=== PATIENT | female | born 1940 | race Caucasian/White ===

== ENCOUNTER 2016-11-10 12:24 | Inpatient (IN) | payer MEDICARE, OTHER ==
[~2016-11-10] VITALS: Ht 160 cm; Wt 81.6 kg
[2016-11-10] MEDS ORDERED: GLUCOPHAGE1000 MG PO (14:12)
[2016-11-10] MEDS ORDERED: JANUMET XR 50-1 EACH PO (14:13)
[2016-11-10 14:23] VITALS: BP 105/56; BMI 35.5
[2016-11-10 14:29] LABS: BASOPHILS 0.7 % (0.0-2.0); EOSINOPHILS 2.4 % (0-7); HEMATOCRIT 20.8 % (36.0-48.0); IMMATURE GRANULOCYTES 0.2 % (0-5); LYMPHOCYTES 33.2 % (15-50); MCHC 26.9 g/dL (31.0-37.0); MCV 66.7 fL (80.0-100.0); MEAN PLATELET VOLUME 9.2 fL (7.4-10.4); MONOCYTES 8.7 % (2-11); NEUTROPHILS 54.8 % (40-80); PLATELET COUNT 322 10x3/uL (130-400); RBC 3.12 10x6/uL (4.00-5.40); RDW 17.6 % (11.5-14.5); WBC 5.4 10x3/uL (4.8-10.8)
[2016-11-10 14:30] LABS: ANION GAP 13.8 mmol/L (8-16); CALCIUM 9.7 mg/dL (8.5-10.1); CARBON DIOXIDE 27.4 mmol/L (21.0-32.0); CREATININE - SERUM 0.9 mg/dL (0.6-1.3); POTASSIUM - SERUM 4.2 mmol/L (3.5-5.1)
[2016-11-10 14:37] LABS: HEMOGLOBIN 5.6 g/dL (12-16); MCH 17.9 pg (26.0-34.0)
[2016-11-10] MEDS ORDERED: CELEBREX200 MG PO (14:43)
[2016-11-10] MEDS ORDERED: NITROQUICK0.4 MG SL (14:44)
[2016-11-10] MEDS ORDERED: LISINOPRIL10 MG PO (14:44)
[2016-11-10] MEDS ORDERED: SPIRIVA18 MCG INH (14:45)
[2016-11-10] MEDS ORDERED: PROAIR HFA8.5 GM INH (14:45)
[2016-11-10] MEDS ORDERED: ASTEPRO (14:46)
[2016-11-10] MEDS ORDERED: ADVAIR 250/501 DISK INH (14:46)
[2016-11-10] MEDS ORDERED: PLAVIX75 MG PO (14:47)
[2016-11-10] MEDS ORDERED: FLUTICASONE PRO16 GM NASAL (14:47)
[2016-11-10] MEDS ORDERED: SINGULAIR10 MG PO (14:48)
--- NOTE | 2016-11-10 16:37 | NUR ---
1515 BO FROM CAMP COORDINATOR STARTED IV LACEY KENT 2 ATTEMPS NOT SUCCESSFUL. STARTED 20 GAUGE IN RT ARM GOOD BLOOD RETURN IV SALINE LOCKED.REPORTED LOW H AND H TO DR. SMILEY AND CATH CANCELLED.HE CALLED [facility] CODER FOR DR. GARDINER TO WRITE ORDERS.
--- NOTE | 2016-11-10 16:40 | NUR ---
1615 ORDERS GIVEN FOR PATIENT TO GET BLOOD AND ADMIT FOR OBSERVATION. INSTRUCTED TO NOT GET UP WITHOUT HELP.C/L IN REACH.
--- NOTE | 2016-11-10 17:31 | NUR ---
1715 CALLED NURSE PRACTICIONER NO ORDERS. TOLERATING HER SUPPER TRAY. REPORT TO JONATHAN COATS R.N. TRANSFERRED TO ROOM VIA W/C WITH BAG.
--- NOTE | 2016-11-10 18:02 | NUR ---
TRANSFER FROM OP BY W/C. OREINTED TO ROOM. CALL LIGHT IN REACH. WILL CONT. PLAN OF CARE.
[2016-11-10 18:11] VITALS: BP 130/60; BMI 35.5
[2016-11-10 19:19] LABS: ANION GAP 15.1 mmol/L (8-16); BILIRUBIN - TOTAL 0.35 mg/dL (0.2-1.3); CALCIUM 9.7 mg/dL (8.5-10.1); CARBON DIOXIDE 27.3 mmol/L (21.0-32.0); CREATININE - SERUM 0.9 mg/dL (0.6-1.3); POTASSIUM - SERUM 4.4 mmol/L (3.5-5.1); PROTEIN - SERUM 7.5 g/dL (6.4-8.2)
[2016-11-10 19:39] LABS: % SATURATION 3 % (15-55); IRON 13 ug/dl (35-150); TOTAL IRON BIND CAPACITY 422 ug/dl (260-445); UNSAT IRON BIND CAPACITY 409 ug/dl (150-375)
[2016-11-10 20:00] VITALS: BP 126/53
[2016-11-10 20:55] LABS: APPEARANCE CLEAR (CLEAR); BILIRUBIN NEGATIVE (NEGATIVE); COLOR YELLOW (YELLOW); GLUCOSE NEGATIVE (NEGATIVE); KETONE NEGATIVE (NEGATIVE); LEUKOCYTE ESTERASE NEGATIVE (NEGATIVE); NITRITE NEGATIVE (NEGATIVE); PROTEIN NEGATIVE (NEGATIVE); SPECIFIC GRAVITY 1.015 (1.005-1.020); UROBILINOGEN NORMAL (NORMAL)
--- NOTE | 2016-11-10 22:53 | NUR ---
1ST UNIT OF PRBCS INITIATED. VSS, CALL LIGHT IN REACH. WILL CONTINUE TO MONITOR.
[2016-11-11] VITALS: BP 134/65
--- NOTE | 2016-11-11 01:49 | NUR ---
1ST UNIT OF PRBCS COMPLETED, TOLERATED WELL. VSS THROUGHOUT TRANSFUSION. WILL CONTINUE TO MONITOR.
--- NOTE | 2016-11-11 03:55 | NUR ---
AREA RELIEF PILOT AT BEDSIDE TO OBTAIN VITALS, CALL LIGHT IN REACH. WILL CONTINUE WITH PLAN OF CARE.
[2016-11-11 04:00] VITALS: BP 130/63
--- NOTE | 2016-11-11 04:42 | NUR ---
2ND UNIT OF PRBCS COMPLETE, VSS THROUGHOUT TRANSFUSION. CALL LIGHT IN REACH. WILL CONTINUE TO MONITOR.
[2016-11-11 06:30] LABS: ALBUMIN 3.5 g/dL (3.4-5.0); BILIRUBIN - TOTAL 0.67 mg/dL (0.2-1.3); CARBON DIOXIDE 27.1 mmol/L (21.0-32.0); CREATININE - SERUM 0.8 mg/dL (0.6-1.3); POTASSIUM - SERUM 4.1 mmol/L (3.5-5.1); PROTEIN - SERUM 7.2 g/dL (6.4-8.2)
[2016-11-11 08:57] LABS: BASOPHILS 0.9 % (0.0-2.0); EOSINOPHILS 2.7 % (0-7); IMMATURE GRANULOCYTES 0.2 % (0-5); LYMPHOCYTES 37.3 % (15-50); MCH 20.8 pg (26.0-34.0); MCHC 28.6 g/dL (31.0-37.0); MEAN PLATELET VOLUME 9.5 fL (7.4-10.4); MONOCYTES 9.5 % (2-11); NEUTROPHILS 49.4 % (40-80); PLATELET COUNT 315 10x3/uL (130-400); RDW 22.1 % (11.5-14.5); WBC 5.5 10x3/uL (4.8-10.8)
[2016-11-11 09:01] LABS: HEMATOCRIT 27.6 % (36.0-48.0); HEMOGLOBIN 7.9 g/dL (12-16); MCV 72.6 fL (80.0-100.0)
[2016-11-11 09:40] LABS: PATH REVIEW PERIPHERAL SMEAR REVIEWED
[2016-11-11 14:54] LABS: HEMATOCRIT 30.3 % (36.0-48.0); HEMOGLOBIN 9.1 g/dL (12-16)
--- NOTE | 2016-11-11 16:01 | NUR ---
RECEIVED PT BACK TO UNIT VIA BED IN STABLE CONDITION VSS
--- NOTE | 2016-11-11 16:45 | NUR ---
SCD'S ON BILATERAL LE
[2016-11-11 20:17] VITALS: BP 172/87
[2016-11-12 04:00] VITALS: BP 168/80
--- NOTE | 2016-11-12 05:30 | NUR ---
CALL LIGHT IN REACH. WILL CONTINUE WITH PLAN OF CARE.
[2016-11-12 05:33] LABS: BASOPHILS 0.2 % (0.0-2.0); EOSINOPHILS 0.9 % (0-7); HEMATOCRIT 32.7 % (36.0-48.0); HEMOGLOBIN 10.1 g/dL (12-16); IMMATURE GRANULOCYTES 0.3 % (0-5); LYMPHOCYTES 21.5 % (15-50); MCH 23.1 pg (26.0-34.0); MCHC 30.9 g/dL (31.0-37.0); MCV 74.8 fL (80.0-100.0); MEAN PLATELET VOLUME 9.6 fL (7.4-10.4); MONOCYTES 6.9 % (2-11); NEUTROPHILS 70.2 % (40-80); PLATELET COUNT 297 10x3/uL (130-400); RBC 4.37 10x6/uL (4.00-5.40); RDW 22.3 % (11.5-14.5); WBC 9.1 10x3/uL (4.8-10.8)
[2016-11-12 05:56] LABS: APTT 30.9 SECONDS (22.8-39.4); INR 1.13 (0.85-1.17); PROTIME 14.4 SECONDS (11.6-15.0)
[2016-11-12 06:19] LABS: CALC OSMOLALITY 279 mosm/kg (275-300); CALCIUM 8.4 mg/dL (8.5-10.1); CHLORIDE - SERUM 104 mmol/L (98-107); CREATININE - SERUM 0.7 mg/dL (0.6-1.3); GLUCOSE 149 mg/dL (74-106); POTASSIUM - SERUM 4.1 mmol/L (3.5-5.1); SODIUM 140 mmol/L (136-145); THYROID STIMULATING HORMONE 0.85 uIU/mL (0.36-3.74); eGFR NON AFRICAN AMERICAN 86 mL/min (90-120)
[2016-11-12 06:24] LABS: UREA NITROGEN 8 mg/dL (7-18)
--- NOTE | 2016-11-12 07:30 | NUR ---
RECEIVED PT IN BED EYES CLOSED RESP UNLABORED NAD NOTED
[2016-11-12 07:38] VITALS: Ht 160 cm; Wt 81.6 kg
[2016-11-12 08:00] VITALS: BP 119/50
[2016-11-12 08:18] LABS: FOLATE (FOLIC ACID) - SERUM >20.0 ng/mL (>3.0)
[2016-11-12] MEDS ORDERED: JANUVIA100 MG PO (10:27)
[2016-11-12] MEDS ORDERED: ASTEPRO30 M1 NASAL (10:42)
[2016-11-12 11:17] LABS: HAPTOGLOBIN 165 mg/dL (34-200)
[2016-11-12] MEDS ORDERED: PROTONIX40 MG PO (11:49)
[2016-11-12] MEDS ORDERED: CARAFATE1 G/10 ML PO (11:49)
[2016-11-12] MEDS ORDERED: LOW DOSE ASPIRI81 M1 PO (11:58)
[2016-11-12 12:00] VITALS: BP 138/60
--- NOTE | 2016-11-12 12:16 | OP ---
PATIENT NAME: MELANIA BROCK MEDICAL RECORD: [id number] :41 LOCATION:D.M2 D.2118 ADMISSION DATE:11/11/16 SURGEON: MONISHA LAM MD DATE OF OPERATION: 11/11/2016 PROCEDURE: EGD with coagulation with cauterization for hemorrhage control. REFERRING PHYSICIAN: Dhaval Talley MD PRIMARY CARE PHYSICIAN: Josi Gardiner MD INDICATIONS: Ms. Brock is a very pleasant 76-year-old woman with a history of coronary artery disease and asthma, who presented with symptoms of progressive dyspnea, fatigue and weakness since Tuesday. She had also developed chest pain and pressure. She was scheduled in outpatient for cardiac catheterization and was found on labwork to be very anemic with hemoglobin of 5.6 and MCV of 67. She has not had any melena or hematochezia. She has been on Plavix therapy for "moderate coronary blockages" and also Celebrex. Her last colonoscopy was in August 2015 with finding showing polyps, moderate sigmoid diverticulosis and grade I internal hemorrhoids. She has not had an EGD in the past. She has been transfused 4 units of packed red blood cells and her hemoglobin is now 9.1. She presents for inpatient EGD. PREMEDICATIONS: Total IV anesthesia (ASA 3, history of obstructive sleep apnea on CPAP and coronary artery disease), 320 MG. INSTRUMENT: Olympus video gastroscope. PROCEDURE AND FINDINGS: After receiving informed consent, Ms. Brock's posterior pharynx was anesthetized with Cetacaine spray. She was placed in left lateral decubitus position and sedated as per anesthesia. After achieving an adequate level of sedation, gastroscope was introduced per orally and advanced to the duodenum without difficulty. The esophageal mucosa was without erythema, ulcers, strictures or masses, appeared normal down the GE junction. Small hiatal hernia was noted. Gastric mucosa was notable for mild prepyloric and antral erythema and antral biopsies were obtained to rule out Helicobacter pylori. In the fundus of the stomach were several angioectasias that were oozing blood and both of which were successfully cauterized with the gold probe. In the duodenal bulb was a small nonhemorrhagic angioectasia that was also cauterized with the gold probe. There was no AVM seen in the second to the third portion of duodenum. The gastroscope was then withdrawn. Ms. Brock tolerated the procedure well, no immediate complications. ASSESSMENT: 1. Small hiatal hernia. 2. Bleeding angioectasias in the fundus of the stomach, status post cauterization. 3. Small angioectasia in the duodenal bulb, status post cauterization. 4. Mild gastritis, status post antral biopsy. 5. 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 RECOMMENDATIONS: 1. Follow up histopathology. OPERATIVE REPORT [id number] MELANIA BROCK 2. Sucralfate 1 gram p.o. q.6 hours. 3. Protonix 40 mg IV b.i.d.; change Protonix to 40 mg p.o. b.i.d. tomorrow if hemoglobin and hematocrit remained stable. 4. Avoid nonsteroidal anti-inflammatory drugs and Celebrex if possible or limit their use and if absolutely needed, I recommend taking a daily proton pump inhibitor along with the Celebrex or NSAID. 5. Recommend adjudication specialist's opinion regarding continued need for Plavix therapy given the ensuing iron deficiency anemia. TRANSINT:[id number] Voice Confirmation ID: [id number] DOCUMENT ID: [id number] MONISHA LAM MD at 1216 CC: JOSI GARDINER MD [id number] DICTATION DATE: 11/11/16 172 STAFF WEAPONS OFFICER: 11/11/16 1906 ADM IN [facility] [address] [place] [address]
--- NOTE | 2016-11-12 14:02 | NUR ---
* Is the patient Alert and Oriented? Yes 0 * How many steps to enter\exit or inside your home? 0 0 * PCP DR. GARDINER 0 * Pharmacy [facility] 0 * Preadmission Environment Home with Family 0 * ADLs Independent 0 * Equipment Cane CPAP 0 * Other Equipment PATIENT HAS CPAP PROVIDED BY [employer] [facility]) 0 * List name and contact numbers for known caregivers / representatives who currently or will assist patient after discharge: S/O: TONI MORRISON [phone] 0 * Community resources currently utilized None 0 * Additional services required to return to the preadmission environment? No 0 * Can the patient safely return to the preadmission environment? Yes 0 * Has this patient been hospitalized within the prior 30 days at any hospital? No PATIENT STATES SHE LIVES AT HOME WITH HER SIGNIFICANT OTHER OF 30 YEARS. HE IS PRESENT AND HE WILL DRIVE HER HOME AT DISCHARGE. PATIENT'S PCP IS DR. GARDINER. SHE GETS HER MEDS FROM [facility]. PATIENT HAS A CANE AND CPAP MACHINE PROVIDED BY [employer] ([employer]). PATIENT DENIES EVER HAVING HOME HEALTH CARE. SHE STATES THERE ARE NO STEPS TO ENTER HER HOME. DENIES ANY NEEDS AT THIS TIME.
--- NOTE | 2016-11-12 14:58 | NUR ---
IV DC'D TO RIGHT FOREARM WITH TIP INTACT. COVERED WITH 2X2 GAUZE AND TAPE. TOLERATED WELL. DISCHARGE INSTRUCTIONS REVIEWED WITH PT AND SPOUSE. VERBAL AND WRITTEN ACKNOWLEDGEMENT RETURNED
--- NOTE | 2016-11-12 15:10 | NUR ---
PT DISCHARGED HOME LEFT UNIT VIA W/C IN STABLE CONDITION WITH ALL PERSONAL BELONGINGS
[2016-11-15 18:07] LABS: SPE - A/G RATIO 1.2 (0.7-1.7); SPE - ALBUMIN 3.5 g/dL (2.9-4.4); SPE - ALPHA-1 GLOBULIN 0.2 g/dL (0.0-0.4); SPE - ALPHA-2 GLOBULIN 0.7 g/dL (0.4-1.0); SPE - GAMMA GLOBULIN 1.1 g/dL (0.4-1.8); SPE - M-SPIKE Not Observed g/dL (Not Observed); SPE - TOTAL PROTEIN 6.5 g/dL (6.0-8.5)
== END 2016-11-12 15:10 | disposition home or self-care (01) | DRG 379 ==
LOC: D.M2 12:24 → D.CATH 12:24 → EDSTATUS 14:30 → D.CATH 14:30 → OBSVTIME 15:58 → D.M2 15:58 → D.CATH 17:21 → D.M2 17:50 → D.CATH 11-11 16:39 → D.M2 11-11 16:39 → D.CATH 11-11 16:40 → D.M2 11-11 16:40
PROVIDERS: Internal Medicine Cardiovascular Disease; Internal Medicine Gastroenterology; ADMIT Family Medicine Adult Medicine
PROC: 0DB68ZX Excision of Stomach, Via Natural or Artificial Opening Endoscopic, Diagnostic (ICD-10-PCS; 2016-11-11)
PROC: 0W3P8ZZ Control Bleeding in Gastrointestinal Tract, Via Natural or Artificial Opening Endoscopic (ICD-10-PCS; principal; 2016-11-11 15:45)
DX: K31.811 Angiodysplasia of stomach and duodenum with bleeding (principal); K29.70 Gastritis, unspecified, without bleeding; D50.9 Iron deficiency anemia, unspecified; K44.9 Diaphragmatic hernia without obstruction or gangrene; I10 Essential (primary) hypertension; J45.909 Unspecified asthma, uncomplicated; K57.90 Diverticulosis of intestine, part unspecified, without perforation or abscess without bleeding; I25.10 Atherosclerotic heart disease of native coronary artery without angina pectoris; E78.5 Hyperlipidemia, unspecified; Z87.891 Personal history of nicotine dependence

== ENCOUNTER → 2017-06-15 16:49 | Outpatient (CLI) | payer MEDICARE, OTHER ==
[2016-11-12 07:38] VITALS: BMI 31.8
[~2017-06-15 16:49] MED LIST: ADVAIR 250/501 DISK INH; ASTEPRO; ASTEPRO30 M1 NASAL; CARAFATE1 G/10 ML PO; CELEBREX200 MG PO; FLUTICASONE PRO16 GM NASAL; GLUCOPHAGE1000 MG PO; JANUMET XR 50-1 EACH PO; JANUVIA100 MG PO; LISINOPRIL10 MG PO; LOW DOSE ASPIRI81 M1 PO; NITROQUICK0.4 MG SL; PLAVIX75 MG PO; PROAIR HFA8.5 GM INH; PROTONIX40 MG PO; SINGULAIR10 MG PO; SPIRIVA18 MCG INH
== END | disposition home or self-care (01) ==
LOC: D.MAMMO 16:00
DX: R92.8 Other abnormal and inconclusive findings on diagnostic imaging of breast (principal)